=== PATIENT | male | born 1990 | race Caucasian/White ===

== ENCOUNTER → 2021-04-05 | Outpatient (CLI) | payer OTHER ==
[~2021-04-05] MED LIST: BUPRENORPHN-NA1 EACH SL; IBUPROFEN800 MG PO; LOVENOX SY40 MG/0.4 SQ; PERCOCET 10-321 EACH PO; PERCOCET 5/325 T1 EA PO
== END ==
LOC: KOH-I 13:20
DX: S43.084D Other dislocation of right shoulder joint, subsequent encounter (principal); S42.291D Other displaced fracture of upper end of right humerus, subsequent encounter for fracture with routine healing; M21.821 Other specified acquired deformities of right upper arm; M89.9 Disorder of bone, unspecified
CPT/HCPCS: 73200